=== PATIENT | female | born 2000 | race Caucasian/White ===

== ENCOUNTER 2021-08-28 16:47 | Emergency (ER) | payer OTHER ==
[2021-08-28] MEDS ORDERED: Albuterol/Ipratropium 3.0-0.5 MG/3 ML Neb Soln NEB ONE (17:05)
== END 2021-08-28 18:07 | disposition home or self-care (01) ==
LOC: MW.ED 16:47
DX: J40 Bronchitis, not specified as acute or chronic (principal); Z86.16 Personal history of COVID-19
CPT/HCPCS: 71045; 71045-26; 99283-25; J7620-GY